=== PATIENT | female | born 1995 | race Caucasian/White ===

== ENCOUNTER 2023-07-25 22:01 | Emergency (ER) | payer OTHER, SELFPAY ==
[2023-07-25 22:03] VITALS: BP 136/78
[2023-07-25 22:09] VITALS: BMI 24.4
--- NOTE | 2023-07-25 22:59 | ED.GENMED ---
History of Present Illness
<BILL Palma - Last Filed: 07/25/23 23:21>
General
Chief Complaint: Facial Problem
Source: patient
Exam Limitations: none
Time Seen by Provider: 07/25/23 22:07
Travel History
Have you had any contact with someone who has COVID-19?: No
Do you have any symptoms of coronavirus? Fever > 100 degrees, chills, cough, shortness of breath, sore throat, loss of taste or smell, muscle aches, or headache?: No
History of Present Illness
History of Present Illness:
This is a 27 year old female that comes in with c/o swelling of the lip. States that she was on her Honeymoon in [facility]. States that she had food poisoning but this has since gotten better. States that today she had some swelling on the left
sided of her lip and this went away. Then tonight about 1.5 hour ago she started with right upper lip swelling. States that she felt it was getting worse. Denies any fever, chills, nausea, vomiting, headache, dizziness.
Past History
<BILL Palma - Last Filed: 07/25/23 23:21>
Past History
ED Past Medical History: None
ED Past Surgical History: None
Social History
Tobacco: Non-smoker
Alcohol: Occasional
Drug: None
Personal:
Living: with family
Review of Systems
<BILL Palma - Last Filed: 07/25/23 23:21>
Review of Systems
All Other Systems: ROS reviewed and negative except as documented in HPI and ROS
Constitutional: Reports no symptoms; Denies fever or chills
EENT: Reports other (Swelling of the right upper lip)
Respiratory: Reports no symptoms
Cardiac: Reports no symptoms
ABD/GI: Reports no symptoms
: Reports no symptoms
Musculoskeletal: Reports no symptoms
Skin: Reports no symptoms
Neurological: Reports no symptoms
Psychiatric: Reports no symptoms
Phy Exam
<BILL Palma - Last Filed: 07/25/23 23:21>
General Physical Exam
General Presentation: no apparent distress
General age: appears stated age
General Skin: warm and dry
General Habitus: normal
General Mental: alert
General Hydration: appears well hydrated
ENT Exam
ENT Exam: TM's normal, pharynx normal, neck supple and other (Slight swelling of the right upper lip. Area of dryness noted. negative for any redness. )
Eye Exam
Eye Exam: EOMI
Cardiovascular Exam
Cardiovascular Exam: regular rate/rhythm and no murmur
Pulmonary Exam
Pulmonary Exam: lungs clear, no respiratory distress, no rales, chest non tender, no crackles, no rhonchi, no wheezing and no cough
Musculoskeletal Exam
Musculoskeletal Exam: full ROM
Skin Exam
Skin Exam: normal color, warm/dry, no rash and no petechia
Psychiatric Exam
Psychiatric Exam: normal mood/affect
Course
<BILL Palma - Last Filed: 07/25/23 23:21>
Orders/Labs/Results
Orders:
Orders
07/25/23 22:59
Diphenhydramine [Benadryl] 50 mg PO NOW STA
07/25/23 23:12
Mometasone [Elocon 0.1% Cream] See Dose Instructions TOPICAL NOW STA
Vital Signs
Initial and Last Documented VS:
Initial Vital Signs
Temp Pulse Resp BP Pulse Ox
98.8 F 90 18 136/78 98
07/25/23 22:03 07/25/23 22:03 07/25/23 22:03 07/25/23 22:03 07/25/23 22:03
Last Documented Vital Signs
Temp Pulse Resp BP Pulse Ox
98.8 F 68 18 113/73 99
07/25/23 22:03 07/25/23 23:28 07/25/23 22:03 07/25/23 23:28 07/25/23 23:28
<Karely Chapa DO - Last Filed: 07/26/23 00:22>
Orders/Labs/Results
Orders:
Orders
07/25/23 22:59
Diphenhydramine [Benadryl] 50 mg PO NOW STA
07/25/23 23:12
Mometasone [Elocon 0.1% Cream] See Dose Instructions TOPICAL NOW STA
Vital Signs
Initial and Last Documented VS:
Initial Vital Signs
Temp Pulse Resp BP Pulse Ox
98.8 F 90 18 136/78 98
07/25/23 22:03 07/25/23 22:03 07/25/23 22:03 07/25/23 22:03 07/25/23 22:03
Last Documented Vital Signs
Temp Pulse Resp BP Pulse Ox
98.8 F 68 18 113/73 99
07/25/23 22:03 07/25/23 23:28 07/25/23 22:03 07/25/23 23:28 07/25/23 23:28
<BILL Palma - Last Filed: 07/25/23 23:21>
MDM/Problems Addressed
Differential Diagnosis Includes:
Allergic reaction. Bug bite, Dry area of skin
MDM/Problems Addressed:
This is a 27 year old female that comes in with c/o swelling of the right upper lip. State that she was on her honeymoon and had food poisoning. States that today she had swelling of the left sided of the upper lip and this went away. Then tonight
about 1.5 hour ago she started with some right sided lip swelling.
Explained to patient that this could just be that she was bit by something or the area is dry. Patient can use Benadryl and watch for the next 24 hours. Patient was seen by Dr. Chapa as mother who worker here did not like this information and felt
that this could be a secondary infection from the food poisoning. Explained that there is no redness or sign of infection. Patient was seen by Dr. Chapa.
Chronic conditions affecting care:
NA
Acute Exacerbation and/or Progression of Chronic Illness:
NA
<BILL Palma - Last Filed: 07/25/23 23:21>
*Pulse Oximetry
Patient hypoxic: no
*EKG
Interpreted by ED Provider?: NA
Rate: EKG- N/A
*Manager Golf Interpretation
Rate: Manager Golf- N/A
*Critical Care Note
Total Time (30-74mins, 75-104mins- exclusive of procedures): Not Applicable
ED Attending Note
<BILL Palma - Last Filed: 07/25/23 23:21>
-
Portions of this chart may have been created with voice recognition software.� Occasional wrong word or��sound alike� substitutions may have occurred due to the inherent limitations of voice recognition software.
<Karely Chapa DO - Last Filed: 07/26/23 00:22>
ED Attending Note
Patient seen and examined by attending physician: Yes
I performed the substantive portion of visit, reviewed & personally made and approve the management plan that is documented in note by myself or RAGHAVENDRA.: Yes
I performed a history and physical exam of patient and discussed management with resident, I reviewed resident's note and agree with documented findings and plan of care.: Yes
ED Attending Note:
27-year-old female with no significant past medical history recently returned from a 1 week honeymoon in [facility] on July 21. She states while on her honeymoon she developed GI illness, primarily diarrhea that began a week ago, has been
improving and near resolved over the weekend. She does admit to a few itchy bug bites about her ankles but has not noticed a rash nor fever.
This morning she awoke and noticed some swelling of her left upper lip that was mildly itchy. Swelling resolved on the left upper lip but then this evening she noticed swelling and mild tingling and itchiness of her right upper lip. She denies
sore throat nor a sense of throat swelling. No cough no shortness of breath. No headache, no nasal congestion. No neck pain. No chest pain or abdominal pain.
27-year-old female appears her stated age, bright and alert, pleasant, appears in no acute distress, afebrile and reports no recent fever.
Exam remarkable for very minimal soft tissue swelling left upper lip without associated rash. There is no dental tenderness. Posterior pharynx is clear without edema.
Lungs are clear to auscultation.
Abdomen is soft and nontender.
Minute, focal left upper lip swelling accompanied with local itch is more consistent with focal/contact allergy. Nothing to suggest acute infectious process.
At this point no indication for laboratory studies nor imaging.
Recommend supportive measures, antihistamine for as needed itch and will add a short course of a topical steroid cream.
Prompt follow-up with PCP for recheck.
Return precautions discussed.
Discharge Plan
Departure
Patient Disposition: Home (Routine Discharge)
Date of Disposition: 07/25/23
Time of Disposition: 23:10
Patient with high blood pressure during this ER visit?: Yes
Condition: Good
Covid-19: Not Applicable
Discharge Problem:
Contact dermatitis
Instructions: Dermatitis ( Contact ), BLOOD PRESSURE
Referrals:
Chandrika Maya MD [Family Provider] - As needed
Activity Restrictions/Additional Instructions:
As discussed, this is most likely something that you have come in contact with or a dry area of skin. You may use the Cream to help keep this area moist daily for the next few day. You may also use Benadryl 50mg to help with any itching and to help
with any allergic reaction. Follow up with the family doctor as needed. RETURN WITH ANY CONCERNS.
Interventions
Interventions:
*Risk Screen - Suicide Last Done: 07/25/23 22:05
*General Assessment Last Done: 07/25/23 23:42
*Neglect/Abuse Screening Last Done: 07/25/23 22:05
ED- Fall Risk Assessment Last Done: 07/25/23 23:42
*ED COVID-19 Vaccine History Last Done: 07/25/23 23:42
*Nursing Disposition Last Done: 07/25/23 23:42
ED- Cardiac Assessment Last Done: 07/25/23 22:09
ED- Neurological Assessment Last Done: 07/25/23 22:09
ED- Pulmonary Assessment Last Done: 07/25/23 22:09
ED-Skin Assessment Last Done: 07/25/23 22:09
Discharge Date and Time
Discharge Date/Time: 07/25/23 23:42
Print Language: [id number]
[2023-07-25] MEDS: BENADRYL 50 MG PO (23:08)
[2023-07-25 23:28] VITALS: BP 113/73
== END 2023-07-25 23:42 | disposition home or self-care (01) ==
LOC: EMR 22:01
PROVIDERS: EMERGENCY PHYSICIAN Emergency Medicine; FAMILY PHYSICIAN Internal Medicine
DX: L25.9 Unspecified contact dermatitis, unspecified cause (principal)
CPT/HCPCS: 99283